=== PATIENT | female | born 1985 | race Caucasian/White ===

== ENCOUNTER → 2023-05-14 09:36 | Outpatient (REF) | payer OTHER, SELFPAY | LOC: WDC 09:36 | PROVIDERS: ATTENDING PHYSICIAN Obstetrics & Gynecology Gynecology; FAMILY PHYSICIAN Family Medicine | DX: N63.10 Unspecified lump in the right breast, unspecified quadrant (principal); N63.20 Unspecified lump in the left breast, unspecified quadrant | CPT/HCPCS: 76642 ==

== ENCOUNTER → 2023-05-20 07:29 | Outpatient (REF) | payer OTHER, SELFPAY ==
--- NOTE | 2023-05-20 11:24 | OID.BR.INTR ---
[facility] Breast Navigator - Initial
- -
Date of Contact: 05/20/23
Met with patient. Patient given written information on navigator services [facility]. Will follow up as needed per protocol.
== END ==
LOC: WDC 07:29
PROVIDERS: ATTENDING PHYSICIAN Obstetrics & Gynecology Gynecology; FAMILY PHYSICIAN Family Medicine
DX: N63.11 Unspecified lump in the right breast, upper outer quadrant (principal)
CPT/HCPCS: 19000; 76942; 88112

== ENCOUNTER → 2024-04-30 07:23 | Outpatient (REF) | payer OTHER, SELFPAY | LOC: HWWDC 07:23 | PROVIDERS: ATTENDING PHYSICIAN Obstetrics & Gynecology Gynecology; FAMILY PHYSICIAN Family Medicine | DX: Z12.31 Encounter for screening mammogram for malignant neoplasm of breast (principal) | CPT/HCPCS: 77063; 77067 ==